=== PATIENT | male | born 1965 | race Caucasian/White ===

== ENCOUNTER 2017-04-26 12:19 | Emergency (ER) | payer SELFPAY ==
[~2017-04-26] VITALS: Ht 167.6 cm; Wt 90.7 kg
[2017-04-26 12:20] VITALS: BP_SYST 143
== END 2017-04-26 14:20 | disposition left against medical advice (07) ==
LOC: SED 12:19
DX: R68.89 Other general symptoms and signs (principal); Z53.21 Procedure and treatment not carried out due to patient leaving prior to being seen by health care provider